=== PATIENT | female | born 1970 | race Caucasian/White ===

== ENCOUNTER 2017-02-22 13:39 | Outpatient (CLI) | payer MEDICARE, MEDICAID ==
[2017-02-22 15:36] LABS: Anion Gap 16 mmol/L (10-20); BUN (Urea Nitrogen) 9 mg/dL (7.0-18.7); Calc. Creatinine Clearance 0 mL/min (70-130); Carbon Dioxide 28 mmol/L (22-29); Chloride 101 mmol/L (98-107); Estimated GFR-MDRD 74
== END 2017-02-22 13:40 | disposition home or self-care (01) ==
LOC: LABBT 13:39
PROVIDERS: ATTEND Orthopaedic Surgery
DX: Z01.812 Encounter for preprocedural laboratory examination (principal); M75.101 Unspecified rotator cuff tear or rupture of right shoulder, not specified as traumatic
CPT/HCPCS: 80048

== ENCOUNTER 2017-03-04 05:50 | Day surgery (SDC) | payer MEDICARE, MEDICAID ==
[2017-02-22 14:01] VITALS: BMI 33.3
[2017-03-04] MEDS ORDERED: Vancomycin HCl 1.5 GM in Sodium Chloride 0.9% 250 ML 300 ML IVPB SCH (06:15)
[2017-03-04] MEDS ORDERED: Midazolam HCl 2 mg/2 ml Vial ONE (06:18)
[2017-03-04] MEDS ORDERED: Fentanyl 100 MCG/2 ML VIAL ONE (06:18)
[2017-03-04] MEDS ORDERED: Ropivacaine 0.2% HCl/PF 20 ML ONE (06:19)
[2017-03-04 06:22] LABS: #Eosinphils 0.3 thou/uL (0.0-0.7); #Lymphocytes 2.8 thou/uL (1.20-3.40); #Monocytes 0.9 thou/uL (0.11-0.59); #Neutrophils 7.3 thou/uL (1.40-6.50); %Basophils 0.2 % (0.0-1.0); %Eosinophils 2.3 % (0.0-10.0); %Lymphocytes 24.4 % (21.0-51.0); %Monocytes 8.2 % (0.0-10.0); Hematocrit 43.5 % (36.0-47.0); Red Blood Cell (RBC) Count 4.86 mill/uL (4.20-5.40); White Blood Cell (WBC) Count 11.3 thou/uL (4.8-10.8)
[2017-03-04] MEDS ORDERED: Levofloxacin 500 mg/D5W 100 ml Premix Bag ONE (06:38)
[2017-03-04] MEDS ORDERED: Promethazine HCl 25 MG/ML VIAL IM PRN (07:04)
[2017-03-04] MEDS ORDERED: Ketorolac Tromethamine 30 MG/ML VIAL IVP PRN (07:04)
[2017-03-04] MEDS ORDERED: traMADol HCl 50 MG TAB PO PRN ×2 (07:04)
[2017-03-04] MEDS ORDERED: Ondansetron HCl/PF 4 MG/2 ML Vial IVP PRN (07:04)
[2017-03-04] MEDS ORDERED: Zolpidem Tartrate 5 MG TAB PO PRN (07:04)
[2017-03-04] MEDS ORDERED: Ropivacaine 0.2% 550 ML 550 ML NERVE BLCK SCH (07:04)
--- NOTE | 2017-03-04 10:15 | OP ---
DATE OF PROCEDURE: 03/04/2017 PREOPERATIVE DIAGNOSIS: Right rotator cuff tear with proximal biceps tendon subluxation (supraspina tus, subscapularis articular side tears). POSTOPERATIVE DIAGNOSIS: Right rotator cuff tear with proximal biceps tendon subluxation (supraspin atus, subscapularis articular side tears). PROCEDURES PERFORMED: Mini open right shoulder acromioplasty, revision rotator cuff repair with pro ximal biceps tenodesis. SURGEON: John Bonner M.D. CORRECTION OFFICER: Anthony Acosta PA-C. ANESTHESIA: General via endotracheal tube augmented with indwelling interscalene block. COMPONENTS USED: Proximal biceps tenodesis and tenodesis screw, 7 mm bio-absorbable with FiberWire primary oversew and reinforcement of cuff tear. ESTIMATED BLOOD LOSS: Less than 20 mL DRAINS: None. SPECIMENS: None. COMPLICATIONS: None. COUNTS: Correct. INDICATIONS FOR SURGERY: Ms. Dawson is a 46-year-old white female who has had progressive right elda ulder pain for the last 4-5 months. She has had arthroscopic rotator cuff performed by Dr. Ha borrero 2-1/2 years ago. She has had progressive recrudescence of pain. An arthrogram was per formed preoperatively, which demonstrated articular-side subscapularis rotator cuff tear with an art icular supraspinatus incomplete tear and biceps tendon subluxation. She has elected to proceed with a revision rotator cuff open repair as definitive treatment of this problem. PROCEDURE IN DETAIL: After informed consent was obtained in the preoperative holding area, the leslye ent received preoperative antibiotics, was taken to the operative suite where general anesthesia was induced. Once adequate anesthesia was obtained, endotracheal tube was placed and secured. She was then positioned appropriately in a beach chair position. The right upper extremity and shoulder wa s prepped and draped in the usual sterile fashion. Prior to incision, timeout was called and all me mbers of surgical team agreed upon site, surgeon, and patient. After a timeout was completed, the i ncision was made on the lateral aspect of the right shoulder using sharp dissection being carried do wn through the subcutaneous layer with Bovie and blunt dissection encountering the deltoid. Bovie e lectrocautery was then used to expose the acromion edge and cautery was then used to open the deltoi d laterally using existing muscular raphe. Muscles were then divided and acromion was fully exposed and rongeur was then used to perform acromioplasty. We were then able to identify the weakness in the supraspinatus tendon insertion and subluxation of biceps was palpable. Small articular subscapu sybil tendon rupture was noted, but overall the majority of the tendon was still intact and was not shortened. We could not identify articular cartilage at this time, but it appeared as though there was a articular side delaminating tear. This was reinforced with FiberWire in both areas to include the subscapularis and the supraspinatus tendon. We then reflected the inferior aspect of the subsc apularis with Bovie electrocautery, identified the biceps tendon and tenodesis was then performed us ing Arthrex bioabsorbable interference screw. The interference screw was then used as an anchor poi nt for the inferior aspect of the subscapularis tendon. Having a good watertight fixation and rotat or cuff was mobile, we then bluntly dissected around using Miky elevators to remove all scar tis di in and around the shoulder capsule. Having good free motion, we then copiously irrigated the en tire wound with normal saline. The deltoid was reapproximated with 0 Ethibond stitches in a simple interrupted fashion. The muscular sheath was then reapproximated with #2 Vicryl. Her primary fasci a was reapproximated with interrupted 2-0 stitches and the subcuticular layer was closed with interr upted 2-0 inverted simple stitches and the skin was reapproximated with stainless steel osvaldo. St erile dressing was applied. The procedure was terminated without any complications. The patient wa s extubated in the operative suite and taken to recovery room in stable condition.
== END 2017-03-04 12:30 ==
LOC: SDC 05:50
PROVIDERS: ATTEND Orthopaedic Surgery
PROC: 0LQ10ZZ Repair Right Shoulder Tendon, Open Approach (ICD-10-PCS; principal; 2017-03-04)
PROC: 0LS30ZZ Reposition Right Upper Arm Tendon, Open Approach (ICD-10-PCS; 2017-03-04)
DX: M75.101 Unspecified rotator cuff tear or rupture of right shoulder, not specified as traumatic (principal); S46.119A Strain of muscle, fascia and tendon of long head of biceps, unspecified arm, initial encounter; I10 Essential (primary) hypertension; K21.9 Gastro-esophageal reflux disease without esophagitis; F17.210 Nicotine dependence, cigarettes, uncomplicated; J45.909 Unspecified asthma, uncomplicated; Z96.641 Presence of right artificial hip joint; Z90.89 Acquired absence of other organs; Z98.1 Arthrodesis status; Z98.890 Other specified postprocedural states; Z88.0 Allergy status to penicillin; Z88.2 Allergy status to sulfonamides; Z88.1 Allergy status to other antibiotic agents
CPT/HCPCS: 23415; 85025; 97139; 98960; A4306; G8984; G8985; G8986; C1713; J1956; J2250; J2795; J3010; J3370; J7050

== ENCOUNTER 2017-06-07 08:00 | Outpatient (CLI) | payer MEDICARE, MEDICAID | END 2017-06-07 08:01 | disposition home or self-care (01) | LOC: BICMRI 08:00 | PROVIDERS: ATTEND Orthopaedic Surgery | DX: M25.511 Pain in right shoulder (principal); M75.101 Unspecified rotator cuff tear or rupture of right shoulder, not specified as traumatic; M25.411 Effusion, right shoulder; Z98.890 Other specified postprocedural states ==

== ENCOUNTER 2017-06-21 12:05 | Outpatient (CLI) | payer MEDICARE, MEDICAID ==
[2017-06-21 15:32] LABS: Anion Gap 18 mmol/L (10-20); BUN (Urea Nitrogen) 8 mg/dL (7.0-18.7); Calc. Creatinine Clearance 0 mL/min (70-130); Calcium 10.4 mg/dL (7.8-10.44); Carbon Dioxide 24 mmol/L (22-29); Chloride 99 mmol/L (98-107); Estimated GFR-MDRD 83; Glucose 213 mg/dL (70-105); Potassium 4.3 mmol/L (3.5-5.1); Sodium 137 mmol/L (136-145)
--- NOTE | 2017-06-21 23:46 | EKG ---
Test Reason : Blood Pressure : / mmHG Vent. Rate : 078 BPM Atrial Rate : 078 BPM P-R Int : 146 ms QRS Dur : 092 ms QT Int : 372 ms P-R-T Axes : 043 087 057 degrees QTc Int : 424 ms Normal sinus rhythm Normal ECG When compared with ECG of 04-MAY-2016 06:49, No significant change was found Confirmed by Maria Isabel OSWALD ([id number]) on 06/21/2017 11:46:01 PM Referred By: GAURAV Confirmed By:Maria Isabel OSWALD
== END 2017-06-21 12:06 | disposition home or self-care (01) ==
LOC: LABBT 12:05
PROVIDERS: ATTEND Orthopaedic Surgery
DX: Z01.812 Encounter for preprocedural laboratory examination (principal); Z01.810 Encounter for preprocedural cardiovascular examination; M75.101 Unspecified rotator cuff tear or rupture of right shoulder, not specified as traumatic; Z88.0 Allergy status to penicillin; Z88.1 Allergy status to other antibiotic agents; Z88.2 Allergy status to sulfonamides
CPT/HCPCS: 80048; 93005; 93010

== ENCOUNTER 2017-06-23 05:39 | Day surgery (SDC) | payer MEDICARE, MEDICAID ==
[2017-06-21 12:17] VITALS: BMI 33.3
[2017-06-23] MEDS ORDERED: Levofloxacin 500 mg/D5W 100 ml Premix Bag ONE (06:14)
[2017-06-23] MEDS ORDERED: Vancomycin HCl 1.5 GM in Sodium Chloride 0.9% 250 ML 300 ML IVPB SCH (06:15)
[2017-06-23] MEDS ORDERED: Midazolam HCl 2 mg/2 ml Vial ONE (06:40)
[2017-06-23] MEDS ORDERED: Fentanyl 100 MCG/2 ML VIAL ONE (06:40)
[2017-06-23] MEDS ORDERED: Promethazine HCl 25 MG/ML VIAL IM PRN (07:50)
[2017-06-23] MEDS ORDERED: Ropivacaine 0.2% 550 ML 550 ML NERVE BLCK SCH (07:50)
[2017-06-23] MEDS ORDERED: Ketorolac Tromethamine 30 MG/ML VIAL IVP PRN (07:50)
[2017-06-23] MEDS ORDERED: Ondansetron HCl/PF 4 MG/2 ML Vial IVP PRN (07:50)
[2017-06-23] MEDS ORDERED: HYDROcodone/Acetaminophen 5/325 mg Tablet PO PRN ×2 (07:50)
[2017-06-23] MEDS ORDERED: Zolpidem Tartrate 5 MG TAB PO PRN (07:50)
[2017-06-23] MEDS ORDERED: traMADol HCl 50 MG TAB PO PRN ×2 (07:50)
[2017-06-23] MEDS ORDERED: Fentanyl 100 MCG/2 ML VIAL IV PRN (07:51)
--- NOTE | 2017-06-23 12:18 | OP ---
PREOPERATIVE DIAGNOSIS: Rotator cuff tear, recurrent. POSTOPERATIVE DIAGNOSIS: Rotator cuff tear, recurrent. PROCEDURE: Open rotator cuff repair. SPECIMEN: Culture of the right shoulder sent. SURGEON: John Bonner M.D. ASSISSTANT: SELENA Acosta IMPLANTS: None. NARRATIVE REPORT: Appropriate consent was obtained, the patient was taken to the operating room wher e general anesthesia was induced. The patient was placed in a beach chair position. Right arm was p repped and draped in the usual sterile fashion. She received vancomycin preoperatively. The old inc ision was opened. Dissection carried down to these sutures through the acromion. The deltoid was ta colin down off the anterior acromion just a very small hole in the rotator cuff adjacent for the suture s identified. I used an arthrogram technique by injecting sterile saline into the joint to find this . We did find somewhat slightly cloudy fluid in the subacromial space, which was joint fluid consist ency this was sent for culture. Copious irrigation was performed. Shoulder was manipulated, rotator cuff was repaired with #1 Ethibond. Deltoid was repaired with #1 Ethibond, subcutaneous tissue clos ed with 2-0 Vicryl, the skin was closed with osvaldo. Sterile dressings applied.
== END 2017-06-23 11:30 | disposition home or self-care (01) ==
LOC: SDC 05:39
PROVIDERS: ATTEND Orthopaedic Surgery
PROC: 0LQ10ZZ Repair Right Shoulder Tendon, Open Approach (ICD-10-PCS; principal; 2017-06-23)
DX: M75.101 Unspecified rotator cuff tear or rupture of right shoulder, not specified as traumatic (principal); E11.9 Type 2 diabetes mellitus without complications; I10 Essential (primary) hypertension; M81.0 Age-related osteoporosis without current pathological fracture; J45.909 Unspecified asthma, uncomplicated; K21.9 Gastro-esophageal reflux disease without esophagitis; M19.90 Unspecified osteoarthritis, unspecified site; F32.9 Major depressive disorder, single episode, unspecified; G47.30 Sleep apnea, unspecified; F17.210 Nicotine dependence, cigarettes, uncomplicated; Z79.84 Long term (current) use of oral hypoglycemic drugs; Z79.890 Hormone replacement therapy; Z79.899 Other long term (current) drug therapy; Z88.1 Allergy status to other antibiotic agents; Z88.0 Allergy status to penicillin; Z88.2 Allergy status to sulfonamides; Z98.1 Arthrodesis status; Z96.641 Presence of right artificial hip joint; Z90.710 Acquired absence of both cervix and uterus; Z90.49 Acquired absence of other specified parts of digestive tract; Z98.891 History of uterine scar from previous surgery; Z98.890 Other specified postprocedural states; Z86.14 Personal history of Methicillin resistant Staphylococcus aureus infection
CPT/HCPCS: 23410; 87070; 87075; 87205; 97139; A4306; G8984; G8985; G8986; J1956; J2250; J2795; J3010; J3370; J7050

== ENCOUNTER 2017-11-02 15:30 | Inpatient (IN) | payer MEDICARE, MEDICAID ==
[2017-11-02 16:07] VITALS: BMI 33.3
[2017-11-11] MEDS ORDERED: Ropivacaine 0.2% HCl/PF 20 ML ONE (08:30)
[2017-11-11] MEDS ORDERED: Midazolam HCl 2 mg/2 ml Vial ONE (08:30)
[2017-11-11] MEDS ORDERED: Lidocaine 1% (PF) 30 ML VIAL ONE (08:30)
[2017-11-11] MEDS ORDERED: Fentanyl 100 MCG/2 ML VIAL ONE ×2 (08:30→10:03)
[2017-11-11] MEDS ORDERED: Sodium Chloride 0.9% 100 ML ONE (08:33)
[2017-11-11] MEDS ORDERED: CEFAZOLIN/Water 2 GM/20 ML SYRINGE ONE (08:33)
[2017-11-11] MEDS ORDERED: Vancomycin HCl 1.5 GM in Sodium Chloride 0.9% 250 ML 300 ML IVPB SCH (08:45)
[2017-11-11] MEDS ORDERED: Levofloxacin 500 mg/D5W 100 ml Premix Bag ONE (09:22)
[2017-11-11] MEDS ORDERED: Ropivacaine 0.2% 550 ML 550 ML NERVE BLCK SCH (09:35)
[2017-11-11] MEDS ORDERED: Ondansetron HCl/PF 4 MG/2 ML Vial IVP PRN (09:35)
[2017-11-11] MEDS ORDERED: Zolpidem Tartrate 5 MG TAB PO PRN (09:35)
[2017-11-11] MEDS ORDERED: Promethazine HCl 25 MG/ML VIAL IM PRN (09:35)
[2017-11-11] MEDS ORDERED: HYDROcodone/Acetaminophen 10/325 mg Tablet PO PRN ×2 (09:35)
[2017-11-11] MEDS ORDERED: traMADol HCl 50 MG TAB PO PRN ×2 (09:35)
[2017-11-11] MEDS ORDERED: Fentanyl 100 MCG/2 ML VIAL IV PRN (09:36)
--- NOTE | 2017-11-11 13:25 | RAD ---
RIGHT SHOULDER 2 VIEWS: HISTORY: Postop right shoulder prosthesis placement. FINDINGS: Postop changes are noted with skin osvaldo. Right shoulder prosthesis has been placed. Components a ppear in adequate position and alignment. POS: [facility]
[2017-11-11] MEDS: Dextrose 5 %-0.45 % NaCl 1,000 ML IV SCH (15:30)
[2017-11-11] MEDS ORDERED: Ropivacaine 0.2% HCl/PF (40 MG/20 ML VIAL) ONE (15:37)
[2017-11-11] MEDS ORDERED: Ropivacaine 0.5% HCl/PF (150 MG/30 ML VIAL) ONE (15:37)
[2017-11-11] MEDS ORDERED: PROPOFOL 200 MG/20 ML VIAL ONE (15:41)
[2017-11-11] MEDS ORDERED: PHENYLEPHRINE-NS 100 MCG/ML 10 ML SYRINGE ONE (15:41)
[2017-11-11] MEDS ORDERED: Lidocaine 1% PF 5 ML VIAL ONE (15:41)
[2017-11-11] MEDS ORDERED: Glycopyrrolate 0.2 MG/ML 5 ML SYRINGE ONE (15:41)
[2017-11-11] MEDS ORDERED: Ondansetron HCl/PF 4 MG/2 ML Vial ONE (15:41)
[2017-11-11] MEDS ORDERED: ePHEDrine/0.9% NaCl/PF SYRINGE 50 mg/10 ml ONE (15:41)
[2017-11-11] MEDS ORDERED: Dexamethasone 20 MG/5 ML VIAL ONE (15:41)
[2017-11-11] MEDS: Ketorolac Tromethamine 30 MG/ML VIAL IVP SCH ×3 (16:32→23:41)
--- NOTE | 2017-11-11 17:14 | OP ---
PREOPERATIVE DIAGNOSIS: Rotator cuff arthropathy, right shoulder, and retained hardware. POSTOPERATIVE DIAGNOSIS: Rotator cuff arthropathy, right shoulder, and retained hardware. SURGEON: John Bonner M.D. MEDICAL RECORDS TECH: Osei Acosta PA-C. BLOOD LOSS: 300. SPECIMEN: None. DRAINS: None. COMPLICATIONS: None. DESCRIPTION OF PROCEDURE: The patient was taken to the operating room where general anesthesia was i nduced. She was placed in beach chair position. Deltopectoral approach was made. The area was quit e scarred from previous multiple surgeries. Subscapularis was taken down. The shoulder was dislocat ed then identified transfixing tenodesis screw in the proximal humerus. A tenodesis screw was remove d by chipping away bone from the aperture of the drill hole and then using the appropriate screwdrive r to remove the screw. I opened up the proximal humerus with opening all, broached to size 2, which was very stable. I reamed the proximal humerus. The glenoid was then exposed removing remaining lab ral tissue and slightly inferior to center hole, it was drilled in the glenoid and reamed with a 1 st ep reamer. I deployed a 29 mm baseplate. Screws were inserted in the usual technique with excellent bone purchase. A standard glenosphere was deployed and screw was tightened without difficulty. Att ention was turned back to offset tray plus 0 in height. The poly was 36 mm x 6 mm. Trial redu ction was performed. Excellent stability. Trials were removed, irrigation performed. I placed dril l holes in the humerus. The implant was impacted into place with the suture around the implant then used the Dacron suture to repair the subscapularis, the proximal humerus. I then tried to mobilize a ny remaining cuff tissue and so this to the subscapularis just to try and give some space closur e. Irrigation performed again. Deltopectoral was closed with a #1 Vicryl, subcutaneous closed with 2-0 Vicryl and the skin was closed with osvaldo. Sterile dressings applied.
[2017-11-11] MEDS ORDERED: Vancomycin HCl 1 GM in Premix Bag 1 BAG IVPB SCH (20:00)
[2017-11-11] MEDS: Calcium Carbonate + Vit D 1 TAB PO SCH (20:35)
[2017-11-11] MEDS: Gabapentin 300 MG CAP PO SCH (20:35)
[2017-11-11] MEDS: Propranolol HCl 20 MG TAB PO SCH (20:44)
[2017-11-12] MEDS: Ketorolac Tromethamine 30 MG/ML VIAL IVP SCH (05:20)
[2017-11-12] MEDS: Dextrose 5 %-0.45 % NaCl 1,000 ML IV SCH (05:24)
[2017-11-12 07:12] VITALS: BP 130/72; TEMP 98.5
[2017-11-12] MEDS ORDERED: metFORMIN XR 500 MG TAB PO SCH (08:00)
[2017-11-12] MEDS ORDERED: Multivit, Therapeutic 1 TAB PO SCH (09:00)
[2017-11-12] MEDS ORDERED: Hydrochlorothiazide 25 MG TAB PO SCH (09:00)
[2017-11-12] MEDS ORDERED: PRASTERONE PO SCH (09:00)
[2017-11-12] MEDS ORDERED: Fenofibrate Nanocrystallized 145 MG TAB PO SCH (09:00)
[2017-11-12] MEDS ORDERED: PARoxetine 20 MG TAB PO SCH (09:00)
[2017-11-12] MEDS ORDERED: Enoxaparin Sodium 30 MG/0.3 ML SYRINGE SC SCH (09:00)
[2017-11-12] MEDS ORDERED: FLAXSEED OIL 1200 MG PO SCH (09:00)
[2017-11-12] MEDS ORDERED: hydrOXYzine 25 MG TAB PO SCH (09:00)
[2017-11-12] MEDS ORDERED: Losartan 25 MG TAB PO SCH (09:00)
[2017-11-12] MEDS ORDERED: Cyanocobalamin (Vitamin B-12) 1,000 MCG TAB PO SCH (09:00)
[2017-11-12] MEDS: Calcium Carbonate + Vit D 1 TAB PO SCH (09:28)
[2017-11-12] MEDS: Gabapentin 300 MG CAP PO SCH (09:30)
[2017-11-12] MEDS: Propranolol HCl 20 MG TAB PO SCH (09:33)
== END 2017-11-12 11:05 | disposition home or self-care (01) | DRG 483 ==
LOC: SURG A 11-11 07:48
PROVIDERS: ADMIT Orthopaedic Surgery; ATTEND Orthopaedic Surgery
PROC: 0RRJ00Z Replacement of Right Shoulder Joint with Reverse Ball and Socket Synthetic Substitute, Open Approach (ICD-10-PCS; principal; 2017-11-11)
PROC: 0PPC04Z Removal of Internal Fixation Device from Right Humeral Head, Open Approach (ICD-10-PCS; 2017-11-11)
PROC: 3E0T3BZ Introduction of Anesthetic Agent into Peripheral Nerves and Plexi, Percutaneous Approach (ICD-10-PCS; 2017-11-11)
DX: M19.011 Primary osteoarthritis, right shoulder (principal); E11.9 Type 2 diabetes mellitus without complications; I10 Essential (primary) hypertension; M81.0 Age-related osteoporosis without current pathological fracture; K21.9 Gastro-esophageal reflux disease without esophagitis; J45.909 Unspecified asthma, uncomplicated; Z96.649 Presence of unspecified artificial hip joint; F32.9 Major depressive disorder, single episode, unspecified; Z86.14 Personal history of Methicillin resistant Staphylococcus aureus infection; Z86.19 Personal history of other infectious and parasitic diseases; Z86.69 Personal history of other diseases of the nervous system and sense organs; Z90.710 Acquired absence of both cervix and uterus; Z90.49 Acquired absence of other specified parts of digestive tract; Z98.1 Arthrodesis status; Z79.899 Other long term (current) drug therapy; Z79.84 Long term (current) use of oral hypoglycemic drugs
CPT/HCPCS: 36416; A4306; G8987-GO-CI; G8988-GO-CI; G8989-GO-CI; J1100; J1650; J1885; J1956; J2001; J2250; J2405; J2704; J2795; J3010; J3370; J7050

== ENCOUNTER 2017-11-02 15:42 | Outpatient (CLI) | payer MEDICARE, MEDICAID ==
[2017-11-02 16:04] LABS: #Basophils 0.1 thou/uL (0.0-0.2); #Eosinphils 0.4 thou/uL (0.0-0.7); #Neutrophils 8.7 thou/uL (1.40-6.50); %Basophils 0.5 % (0.0-1.0); %Eosinophils 2.9 % (0.0-10.0); %Lymphocytes 22.6 % (21.0-51.0); %Monocytes 7.8 % (0.0-10.0); %Neutrophils 66.3 % (42.0-75.0); Hemoglobin 14.7 g/dL (12.0-16.0); Mean Corpuscular HGB CONC 33.1 g/dL (32.0-36.0); Mean Corpuscular Hemoglobin 29.1 pg (27.0-31.0); Mean Corpuscular Volume 87.7 fl (81.0-99.0); Mean Platelet Volume 8.1 fL (7.4-10.4); Platelet Count 348 thou/uL (130-400); RBC Distribution Width 14.1 % (11.5-14.5); Red Blood Cell (RBC) Count 5.05 mill/uL (4.20-5.40); White Blood Cell (WBC) Count 13.1 thou/uL (4.8-10.8)
[2017-11-02 16:21] LABS: Anion Gap 16 mmol/L (10-20); BUN (Urea Nitrogen) 15 mg/dL (7.0-18.7); Calc. Creatinine Clearance 0 mL/min (70-130); Calcium 10.3 mg/dL (7.8-10.44); Carbon Dioxide 23 mmol/L (22-29); Chloride 103 mmol/L (98-107); Estimated GFR-MDRD 81; Glucose 188 mg/dL (70-105); Potassium 4.7 mmol/L (3.5-5.1); Sodium 137 mmol/L (136-145)
== END 2017-11-02 15:43 | disposition home or self-care (01) ==
LOC: LABBT 15:42
PROVIDERS: ATTEND Orthopaedic Surgery
DX: Z01.812 Encounter for preprocedural laboratory examination (principal); M12.9 Arthropathy, unspecified
CPT/HCPCS: 80048; 85025; 87081

== ENCOUNTER 2018-07-27 05:30 | Day surgery (SDC) | payer MEDICARE, MEDICAID ==
[2018-07-26 10:59] VITALS: BMI 33.3
[2018-07-27] MEDS ORDERED: Vancomycin HCl 1.5 GM in Sodium Chloride 0.9% 250 ML 300 ML IVPB SCH (06:00)
[2018-07-27] MEDS ORDERED: Lidocaine 1% w/Epinephrine 1:100K 20 ML VIAL ONE (06:32)
[2018-07-27] MEDS ORDERED: Midazolam HCl 2 mg/2 ml Vial ONE (06:54)
[2018-07-27] MEDS ORDERED: Fentanyl 100 MCG/2 ML VIAL ONE (07:01)
--- NOTE | 2018-07-27 11:59 | OP ---
DATE OF PROCEDURE: 07/27/2018 PREOPERATIVE DIAGNOSES: 1. Trigger thumb, left. 2. Carpal tunnel syndrome, left. POSTOPERATIVE DIAGNOSES: 1. Trigger thumb, left. 2. Carpal tunnel syndrome, left. TYPE OF PROCEDURE: Left carpal tunnel release. ANESTHESIA: TIVA, local. ESTIMATED BLOOD LOSS: Minimal. SPECIMENS: None. DRAINS: None. COMPLICATIONS: None. DESCRIPTION OF PROCEDURE: The patient was taken to the operating room, where general anesthesia was induced. The left arm was prepped and draped in sterile fashion. I made a transverse incision at the flexion crease on the thumb. Dissection was carried down to the tendon sheath. I opened the tendon sheath proximally and distally under direct visualization and Loupe magnification to make sure there was no digital nerve entrapment. Tendon would move freely. Then, irrigation performed and skin was closed. After appropriate consent was obtained, the patient was taken to the operating room where TIVA anesthesia was induced. The arm was prepped and draped in the sterile fashion. The arm was exsanguinated. The tourniquet was inflated to 250 mmHg. A longitudinal incision was made. Hemostasis obtained. Dissection was carried down to the transverse carpal ligament. The transverse carpal ligament was incised. Hemostat was placed deep in the transverse carpal ligament. The knife was used to cut down unto the ligament and hemostat. Care was taken to protect the contents of the carpal canal. Attention was then turned proximally. Metzenbaum scissors were used to release the carpal ligament into the forearm fascia. The carpal tunnel was palpated. There were no masses. The tourniquet was released. Hemostasis was obtained. Copious irrigation performed. The skin was closed with 4-0 nylon. A sterile dressing was applied and the patient was placed in a splint. There were no complications. Job ID: [id number]
[2018-07-27] MEDS ORDERED: PROPOFOL 200 MG/20 ML VIAL ONE (13:58)
[2018-07-27] MEDS ORDERED: Lidocaine 1% PF 5 ML VIAL ONE (13:58)
== END 2018-07-27 09:17 | disposition home or self-care (01) ==
LOC: SDC 05:30
PROVIDERS: ATTEND Orthopaedic Surgery
PROC: 01N50ZZ Release Median Nerve, Open Approach (ICD-10-PCS; principal; 2018-07-27)
DX: G56.02 Carpal tunnel syndrome, left upper limb (principal); M65.312 Trigger thumb, left thumb; E11.9 Type 2 diabetes mellitus without complications; I10 Essential (primary) hypertension; M81.0 Age-related osteoporosis without current pathological fracture; K21.9 Gastro-esophageal reflux disease without esophagitis; J45.909 Unspecified asthma, uncomplicated; F32.9 Major depressive disorder, single episode, unspecified; Z98.890 Other specified postprocedural states; Z79.84 Long term (current) use of oral hypoglycemic drugs; Z79.899 Other long term (current) drug therapy; Z88.0 Allergy status to penicillin; Z88.2 Allergy status to sulfonamides; Z88.8 Allergy status to other drugs, medicaments and biological substances
CPT/HCPCS: J2001; J2250; J2704; J3010; J3370; J7050

== ENCOUNTER 2018-09-27 12:44 | Outpatient (CLI) | payer MEDICARE, MEDICAID ==
--- NOTE | 2018-09-27 13:25 | CT ---
CT LUMBAR SPINE: 09/27/2018 HISTORY: Fall. Pain. Prior back surgery. COMPARISON: None. TECHNIQUE: Axial CT imaging at 3 mm intervals through the lumbar spine without contrast with coronal and sagitta l reformatted imaging. FINDINGS: Evaluation for central canal and/or neural foraminal stenosis is limited on routine CT examination. Moderate bilateral sacroiliac joint degenerative change is present. There is atherosclerotic calcification of the abdominal aorta and its branches. There is no significant anterolisthesis or retrolisthesis present within the lumbar spine. There is an intervertebral disk device at L4-L5. Bilateral L4, L5, and S1 pedicle screws are present , with vertically oriented interlocking rods. No evidence for hardware failure is appreciated on this examination. T12-L1: Mild bilateral facet hypertrophy. Mild disk space narrowing. No osseous cause of significa nt central canal or neural foraminal stenosis. L1-L2: Mild bilateral facet hypertrophy with hypertrophy of the ligamentum flavum. No osseous cause of significant central canal or neural foraminal stenosis. L2-L3: There is disk space narrowing and bilateral facet hypertrophy with mild bilateral ligamentum flavum hypertrophy. Mild central canal stenosis and mild bilateral neural foraminal stenosis suspect ed. L3-L4: Prominent bilateral facet hypertrophy. Moderate bilateral neural foraminal stenosis suspecte d, right greater than left. No osseous cause of significant central canal stenosis. L4-L5: Artifact from hardware limits detailed assessment. Bilateral facet hypertrophy with mild rig ht and moderate left neural foraminal stenosis suspected. No osseous cause of significant central ca nal stenosis. L5-S1: Bilateral facet hypertrophy with probable mild right and moderate left neural foraminal steno sis. No osseous cause of significant central canal stenosis. Right hip arthroplasty present. No acute fracture or dislocation. No suspicious lytic or blastic joann ne lesion. IMPRESSION: Multilevel postoperative and degenerative change within the lumbar spine, as described above. No acu te fracture or evidence of dislocation seen. POS: OFF
== END 2018-09-27 12:45 | disposition home or self-care (01) ==
LOC: TBSIIMAG 12:44
PROVIDERS: ATTEND Neurological Surgery
DX: M54.5 Low back pain (principal); M47.815 Spondylosis without myelopathy or radiculopathy, thoracolumbar region; M47.816 Spondylosis without myelopathy or radiculopathy, lumbar region; M47.817 Spondylosis without myelopathy or radiculopathy, lumbosacral region; Z98.890 Other specified postprocedural states
CPT/HCPCS: 72131

== ENCOUNTER 2019-11-06 18:46 | Observation (INO) | payer MEDICARE, MEDICAID ==
[2019-11-06 20:01] LABS: Anion Gap 13 mmol/L (10-20); BUN (Urea Nitrogen) 32 mg/dL (9.8-20.1); Calc. Creatinine Clearance 0 mL/min (70-130); Calcium 8.8 mg/dL (7.8-10.44); Carbon Dioxide 23 mmol/L (22-29); Chloride 102 mmol/L (98-107); Estimated GFR-MDRD 33; Glucose 83 mg/dL (70-105); Sodium 134 mmol/L (136-145)
[2019-11-06] MEDS ORDERED: Ondansetron ODT 4 MG TAB SL PRN (22:03)
[2019-11-06] MEDS ORDERED: Acetaminophen 325 MG TAB PO PRN (22:03)
[2019-11-06] MEDS ORDERED: Ondansetron PF 4 MG/2 ML Vial IVP PRN (22:03)
[2019-11-06] MEDS ORDERED: Dextrose 5% in Water 1,000 ML IV PRN (22:09)
[2019-11-06] MEDS ORDERED: Calcium Carbonate 500 MG ChewTAB PO PRN (22:09)
[2019-11-06] MEDS ORDERED: Dextrose 50% Abboject 50 ML SYRINGE SLOW IVP PRN (22:09)
[2019-11-06] MEDS ORDERED: HumaLOG 300 UNITS/3 ML VIAL SC PRN ×2 (22:09)
[2019-11-06 22:47] VITALS: BMI 33.5
[2019-11-06] MEDS ORDERED: Nicotine 21 MG PATCH TD SCH (23:00)
[2019-11-07] MEDS ORDERED: HYDROcodone/Acetaminophen 10/325 mg Tablet PO PRN ×2 (02:30→02:36)
[2019-11-07] MEDS: Lactated Ringer's 1,000 ML IV SCH ×2 (04:25→14:57)
[2019-11-07 05:05] LABS: ALT (SGPT) 13 U/L (8-55); AST (SGOT) 13 U/L (5-34); Albumin 3.9 g/dL (3.5-5.0); Alkaline Phosphatase 101 U/L (40-110); Anion Gap 9 mmol/L (10-20); BUN (Urea Nitrogen) 28 mg/dL (9.8-20.1); Bilirubin, Total 0.2 mg/dL (0.2-1.2); Calc. Creatinine Clearance 98 mL/min (70-130); Calcium 9.3 mg/dL (7.8-10.44); Carbon Dioxide 30 mmol/L (22-29); Chloride 102 mmol/L (98-107); Estimated GFR-MDRD 60; Globulin 2.8 g/dL (2.4-3.5); Glucose 123 mg/dL (70-105); Potassium 3.7 mmol/L (3.5-5.1); Protein, Total 6.7 g/dL (6.0-8.3); Sodium 137 mmol/L (136-145)
[2019-11-07 05:08] LABS: Band 2 % (5-11); Eosinophils 4 % (0-10); Hemoglobin 13.1 g/dL (12.0-16.0); Lymphocytes 35 % (21-51); MDiff Complete? YES; Mean Corpuscular HGB CONC 32.5 g/dL (32.0-36.0); Mean Corpuscular Hemoglobin 28.2 pg (27.0-31.0); Mean Corpuscular Volume 86.8 fL (78.0-98.0); Mean Platelet Volume 8.7 fL (7.4-10.4); Monocytes 3 % (0-10); Neutrophil 55 % (42-75); Platelet Count 255 thou/uL (130-400); RBC Distribution Width 13.3 % (11.5-14.5); Reactive Lymphocytes 1 % (0-10); Red Blood Cell (RBC) Count 4.65 mill/uL (4.20-5.40); White Blood Cell (WBC) Count 9.1 thou/uL (4.8-10.8)
--- NOTE | 2019-11-07 06:24 | PDOC.FPRHP ---
- History of Present Illness Chief Complaint: Lightheaded History of Present Illness: Pt is a 49 yo CF with pmh of DMII, HTN, and CHF who presents for lightheadedness , GERD like stomach pain, and a severe headache. She says this all started 2 days ago. 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 She says she drank 4-5 bottles of water 2 days ago and 6-8 bottles of water yesterday. Her headache was was generalized and has since improved. She had 1 minute of chest tightness that was centrally located today without radiation and relieved with rest. ED Course: At [place], WBC count was elevated to 15 and Cre was 2.6. Trop was 0.025. She received 3L there prior to transfer. - Allergies/Adverse Reactions Allergies Allergy/AdvReac Type Severity Reaction Status Date / Time clindamycin Allergy Intermediate Hives Verified 08/18/19 13:39 Penicillins Allergy Intermediate Hives Verified 08/18/19 13:39 Sulfa (Sulfonamide Allergy Intermediate Hives Verified 08/18/19 13:39 Antibiotics) ciprofloxacin [From Cipro] Allergy Verified 08/18/19 13:39 - Home Medications Medication Instructions Recorded Confirmed Type Gabapentin 300 mg PO BID 08/29/13 11/06/19 History Hydrochlorothiazide 25 mg PO DAILY 08/29/13 11/06/19 History Losartan Potassium [Cozaar] 100 mg PO DAILY 08/29/13 11/06/19 History PARoxetine HCl 1 tab PO DAILY 08/29/13 11/06/19 History Pantoprazole [Protonix] 1 tab PO DAILY 08/29/13 11/06/19 History Multivit, Therapeutic [Theragran] 1 tab PO DAILY 10/09/14 11/06/19 History Calcium Citrate/Vitamin D3 2 each PO BID 11/21/14 11/06/19 History [Calcium Citrate - Vit D Tablet] Fenofibrate [Tricor] 160 mg PO DAILY 11/20/15 11/06/19 History Cholecalciferol (Vitamin D3) 5,000 units PO DAILY 05/03/16 11/06/19 History [Vitamin D3] metFORMIN XR [Glucophage XR] 500 mg PO QAM-WM 05/03/16 11/06/19 History Cholecalciferol (Vitamin D3) 50,000 unit PO Q30D 02/22/17 11/06/19 History [Vitamin D] Flaxseed Oil [Flax Seed Oil] 1,200 mg PO DAILY 02/22/17 11/06/19 History Cyanocobalamin (Vitamin B-12) 2,500 mcg PO DAILY 06/21/17 11/06/19 History [Vitamin B12] Prasterone (DHEA) [DHEA] 100 mg PO DAILY 06/21/17 11/06/19 History Propranolol HCl 20 mg PO BID 06/21/17 11/06/19 History hydrOXYzine HCl [Hydroxyzine HCl] 25 mg PO DAILY 06/21/17 11/06/19 History HYDROcodone Bit/APAP 10/325 [[place] 1 - 2 tab PO Q6HR PRN 11/12/17 11/06/19 History 10/325] - History PMHx: GERD, Migraine, Asthma, HTN, DMII, Depression PSHx: R total hip, R shoulder, Gallbladder, Spinal surgeries x6 FHx: Mom: DM, HTN, CHF Social: Denies alcohol or recreatioinal drug use. She has smoked tobacco since 14 she is down to 3-4 cigs per day. - Review of Systems General: denies: fever/chills Eyes: denies: vision changes ENT: denies: nasal congestion Respiratory: reports: shortness of breath. denies: congestion Cardiovascular: reports: chest pain. denies: edema Gastrointestinal: denies: nausea, vomiting, diarrhea, constipation, abdominal pain Genitourinary: denies: dysuria Skin: denies: rashes, lesions Musculoskeletal: denies: pain, tenderness Neurological: denies: numbness, weakness Psychological: reports: depression - Vital signs BP: 123/64 HR: 56 RR: 18 Tmax: 98.3 Pox: 95% on RA Wt: 88.9 kg - Physical Exam Constitutional: NAD, awake, alert and oriented HEENT: normocephalic and atraumatic, PERRLA, EOMI, conjunctiva clear, no scleral icterus, normal nasal mucosa, MMM, oropharynx clear Neck: supple, no LAD Heart: RRR, normal S1/S2, no murmurs/rubs/gallops, pulses present, no edema Lungs: CTAB, no respiratory distress, good air movement, no rales/rhonchi, no wheezing Abdomen: soft, non-tender, bowel sounds present Musculoskeletal: normal structure, normal tone Neurological: no focal deficit, CN II-XII intact Skin: no rash/lesions, good turgor Heme/Lymphatic: no unusual bruising or bleeding, no purpura, no petechia Psychiatric: normal mood and affect FMR H&P: Results - Labs Result Diagrams: 11/07/19 04:20 11/07/19 04:20 Lab results: WBC 9.1 thou/uL (4.8-10.8) 11/07/19 04:20 Hgb 13.1 g/dL (12.0-16.0) 11/07/19 04:20 Hct 40.4 % (36.0-47.0) 11/07/19 04:20 MCV 86.8 fL (78.0-98.0) 11/07/19 04:20 Plt Count 255 thou/uL (130-400) 11/07/19 04:20 Band Neuts % (Manual) 2 % (5-11) L 11/07/19 04:20 Sodium 137 mmol/L (136-145) 11/07/19 04:20 Potassium 3.7 mmol/L (3.5-5.1) 11/07/19 04:20 Chloride 102 mmol/L (98-107) 11/07/19 04:20 Carbon Dioxide 30 mmol/L (22-29) H 11/07/19 04:20 BUN 28 mg/dL (9.8-20.1) H 11/07/19 04:20 Creatinine 0.98 mg/dL (0.6-1.1) 11/07/19 04:20 Glucose 123 mg/dL (70-105) H 11/07/19 04:20 Calcium 9.3 mg/dL (7.8-10.44) 11/07/19 04:20 Total Bilirubin 0.2 mg/dL (0.2-1.2) 11/07/19 04:20 AST 13 U/L (5-34) 11/07/19 04:20 ALT 13 U/L (8-55) 11/07/19 04:20 Alkaline Phosphatase 101 U/L (40-110) 11/07/19 04:20 Serum Total Protein 6.7 g/dL (6.0-8.3) 11/07/19 04:20 Albumin 3.9 g/dL (3.5-5.0) 11/07/19 04:20 FMR H&P: A/P - Plan Pt is a 49 yo CF with pmh of DMII, HTN, and CHF who presents for lightheadedness , GERD like stomach pain, and a severe headache. 1. CYNTHIA Cre: 2.6, baseline 0.6 * S/p 3L at [place] * LR @ 125 * Will monitor with BMP * CBC showed elevated WBC likely 2/2 dehydration will monitor 2. Elevated Trop Trop: 0.025 * Will trend trops * NPO for stress * CP was atypical: tightness, relieved with rest, 1 min, no radiation * Heart Score: 3 * Can consider stress but less like cardiac 3. DMII Hold Metformin * ACHS Accuchecks, Mild SSI 4. HTN BP: 123/64 * BP meds held for possible stress 5. GERD Continue Protonix 6. Asthma Currently not on any medication * No signs of wheezing on exam Code Status: Full Diet: NPO IVF: LR @ 125 cc DVT PPx: SCDs GI PPx: Protonix, home med PCP: Miguel Dispo: Admit to tele obs for treatment of cynthia and trend trops. LOS < 48H. FMR H&P: Upper Level - Plan Date/Time: 11/07/19621 I, Braxton Tolbert, have evaluated this patient and agree with findings/plan as outlined by international student advisor resident. Pertinent changes/additions are listed here. Addendum - Attending - Attending Attestation Date/Time: 11/07/19 0889 I personally evaluated the patient and discussed the management with the team. I agree with the History, Examination, Assessment and Plan documented above with any addition or exceptions noted below. 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 Hydrate and consider stress test.
[2019-11-07] MEDS ORDERED: Prevnar 13-Val Conj/PF 0.5 ML SYRINGE IM ONE (09:00)
[2019-11-07] MEDS ORDERED: Multivit, Therapeutic 1 TAB PO SCH (09:00)
[2019-11-07] MEDS ORDERED: hydrOXYzine 25 MG TAB PO SCH (09:00)
[2019-11-07] MEDS ORDERED: Cyanocobalamin (Vitamin B-12) 1,000 MCG TAB PO SCH (09:00)
[2019-11-07] MEDS ORDERED: PARoxetine 20 MG TAB PO SCH (09:00)
[2019-11-07] MEDS ORDERED: Fenofibrate Nanocrystallized 145 MG TAB PO SCH (09:00)
[2019-11-07] MEDS ORDERED: Gabapentin 300 MG CAP PO SCH (09:00)
[2019-11-07] MEDS ORDERED: Pantoprazole 40 MG GRANULES PACKET PO SCH (09:00)
[2019-11-07] MEDS ORDERED: Regadenoson 0.4 MG/5 ML SYRINGE ONE (09:05)
--- NOTE | 2019-11-07 12:27 | PDOC.EVN ---
Addendum - Attending - Attending Attestation Date/Time: 11/07/19 0542 I personally evaluated the patient and discussed the management with Dr. Williamson. I agree with the History, Examination, Assessment and Plan documented in his H& P with any addition or exceptions noted below. Patient renal function back to normal with IVF hydration. She feels improved. Stress test today due to chest discomfort. If negative, should be stable for discharge home later today.
--- NOTE | 2019-11-07 12:57 | PDOC.FM ---
- Subjective Subjective: Pt is 49 yo female with PMH significant for HTN, HLD, and DM who presented with chest pain after exertion. She became sob of breath, nauseated. Her pain alleviated with rest. She has not had a cardiac workup. - Objective Vital Signs & Weight: Vital Signs (12 hours) Temp Pulse Resp BP Pulse Ox 11/07/19 11:08 97.9 F 62 18 100/52 L 96 11/07/19 07:26 97.9 F 61 18 105/53 L 96 11/07/19 03:20 98.4 F 62 18 99/49 L 95 Weight Weight 91.535 kg I&O: 11/06/19 11/07/19 11/08/19 06:59 06:59 06:59 Intake Total 3610 Balance 3610 Result Diagrams: 11/07/19 04:20 11/07/19 04:20 EKG Reviewed by me: Yes (NSR) Phys Exam - Physical Examination Constitutional: NAD HEENT: PERRLA, moist MMs Neck: no JVD, full ROM Respiratory: no wheezing, no rales, clear to auscultation bilateral Cardiovascular: RRR, no significant murmur Gastrointestinal: soft, non-tender, positive bowel sounds Musculoskeletal: no edema, pulses present Neurological: non-focal, normal sensation Psychiatric: normal affect, A&O x 3 Dx/Plan (1) Diabetes mellitus type II, controlled Code(s): E11.9 - TYPE 2 DIABETES MELLITUS WITHOUT COMPLICATIONS Status: Acute Qualifiers: Diabetes mellitus buttermaker helper insulin use: without buttermaker helper use (2) GERD (gastroesophageal reflux disease) Code(s): K21.9 - GASTRO-ESOPHAGEAL REFLUX DISEASE WITHOUT ESOPHAGITIS Status: Acute (3) High triglycerides Code(s): E78.1 - PURE HYPERGLYCERIDEMIA Status: Acute (4) Hypertension Code(s): I10 - ESSENTIAL (PRIMARY) HYPERTENSION Status: Acute Qualifiers: Hypertension type: essential hypertension Qualified Code(s): I10 - Essential (primary) hypertension - Plan Plan: Pt is here for chest pain: # Typical Chest Pain Chest pressure worse with exertion, alleviated with rest. She does have hx of asthma. - trop neg - pending cardiac stress # CYNTHIA - resolved - resolved with fluids, 2/2 dehydration # DMII - restart metformin after stress # HTN - restart home meds after stress # GERD - restart home meds after stress # Asthma - monitor Code Status: Full Diet: NPO IVF: LR @ 125 cc DVT PPx: SCDs GI PPx: Protonix, home med PCP: Miguel Dispo: Admit to tele obs for treatment of cynthia and trend trops. LOS < 48H.
--- NOTE | 2019-11-07 14:31 | NM ---
NUCLEAR MEDICINE CARDIAC MYOCARDIAL PERFUSION SPECT EJECTION FRACTION STUDY WALL MOTION CINE: DATE: 11/07/2019 HISTORY: 49-year-old female smoker with hypertension, diabetes mellitus, and dyslipidemia, presents with acute chest pain TECHNIQUE: Number of days: 1 Rest study: Technetium 99m-sestamibi (Cardiolite) dose: 9.2 mCi Pharmacologic stress: Lexiscan dose: 0.4 mg Stress study: Technetium 99m-sestamibi (Cardiolite) dose: 31.8 mCi FINDINGS: CARDIAC (MYOCARDIAL PERFUSION) SPECT There are no reversible myocardial perfusion defects. EJECTION FRACTION STUDY Left ventricular EF = 74 % WALL MOTION CINE Normal IMPRESSION: No evidence of reversible ischemia.
[2019-11-07 15:06] VITALS: BP 123/64; TEMP 99
--- NOTE | 2019-11-08 10:59 | DIS ---
DATE OF ADMISSION: 11/06/2019 DATE OF DISCHARGE: 11/07/2019 RESIDENT: Tevin Williamson DO ADMITTING ATTENDING: Pillo Viera MD DISCHARGE ATTENDING: Valerio Mart MD CONSULTS: None. PROCEDURES PERFORMED: Stress test on 11/07/2019, revealed no evidence of reversible ischemia, normal wall motion, left ventricular EF 74%. PRIMARY DIAGNOSIS: Chest pain. SECONDARY DIAGNOSES: 1. Hypertriglyceridemia. 2. Hypertension. 3. Diabetes type 2. 4. Gastroesophageal reflux disease. DISCHARGE MEDICATIONS: 1. Hydrochlorothiazide 25 mg p.o. daily. 2. Losartan 100 mg p.o. daily. 3. Gabapentin 300 mg p.o. b.i.d. 4. Protonix 40 mg p.o. daily. 5. Paroxetine 40 mg p.o. daily. 6. Calcium citrate vitamin D 2 tabs p.o. b.i.d. 7. Fenofibrate 160 mg p.o. daily. 8. Metformin 500 mg p.o. q.a.m. 9. Vitamin D3 of 5000 units p.o. daily. 10. Flaxseed oil 1200 mg p.o. daily. 11. Prasterone 100 mg p.o. daily. 12. Propranolol 20 mg p.o. b.i.d. 13. Hydroxyzine 25 mg p.o. daily. 14. Vitamin B12 of 2500 mcg p.o. daily. 15. [place] 10/325 one tablet p.o. q.6 p.r.n. DISCONTINUED MEDICATIONS: None. HISTORY OF PRESENT ILLNESS/HOSPITAL COURSE: Eunice Campoverde is a 49-year-old female, who presented with typical chest pain to the emergency department. Pain was worse after exertion. She became short of breath, nauseated, and the pain alleviated with rest. She never had a cardiac workup before in her life. Her trops were negative after trending x3. She had a cardiac stress test, which was within normal limits. She does have an extensive history including hypertension and diabetes, which are predisposing her to cardiac abnormalities. Of note, she did have an CYNTHIA likely secondary to dehydration, which resolved with fluids. Her kidney function was within normal limits on the day of discharge. We continued all patient's home medications on discharge. DISPOSITION: Stable. DISCHARGE INSTRUCTIONS: 1. Location: [facility]. 2. Diet: Heart healthy. 3. Activity: Ad sabi. 4. Followup: Follow up with primary care provider within 7 days. Job ID: [id number]
== END 2019-11-07 16:46 | disposition home or self-care (01) ==
LOC: ERS 18:46 → 2NO 19:45
PROVIDERS: ADMIT Emergency Medicine; ATTEND Emergency Medicine
DX: R07.89 Other chest pain (principal); E78.1 Pure hyperglyceridemia; I11.0 Hypertensive heart disease with heart failure; I50.9 Heart failure, unspecified; E11.9 Type 2 diabetes mellitus without complications; N17.9 Acute kidney failure, unspecified; E86.0 Dehydration; R79.89 Other specified abnormal findings of blood chemistry; R42 Dizziness and giddiness; R51 Headache; K21.9 Gastro-esophageal reflux disease without esophagitis; J45.909 Unspecified asthma, uncomplicated; F32.9 Major depressive disorder, single episode, unspecified; F17.210 Nicotine dependence, cigarettes, uncomplicated; E78.00 Pure hypercholesterolemia, unspecified; Z79.84 Long term (current) use of oral hypoglycemic drugs; Z79.899 Other long term (current) drug therapy; Z88.0 Allergy status to penicillin; Z88.1 Allergy status to other antibiotic agents; Z88.2 Allergy status to sulfonamides
CPT/HCPCS: 78452; 80048; 80053; 82962 ×2; 84484; 85007; 85027; 93005; 93017; 96360; 96361; 99285; A9500; G0378 ×3; 36415; 36416; J2785

== ENCOUNTER 2019-12-19 01:16 | Observation (INO) | payer MEDICARE, MEDICAID ==
[2019-12-19 02:30] LABS: Troponin I Less than 0.010 ng/mL (< 0.028)
[2019-12-19] MEDS ORDERED: Calcium Carbonate 500 MG ChewTAB PO PRN (03:26)
[2019-12-19] MEDS ORDERED: Ondansetron ODT 4 MG TAB PO PRN (03:26)
[2019-12-19] MEDS ORDERED: Senokot S 8.6-50 MG TAB PO PRN (03:26)
[2019-12-19] MEDS ORDERED: Acetaminophen 325 MG TAB PO PRN (03:26)
[2019-12-19] MEDS ORDERED: Sodium Chloride 0.9% 1,000 ML IV SCH (03:30)
[2019-12-19] MEDS ORDERED: Dextrose 50% Abboject 50 ML SYRINGE SLOW IVP PRN (03:32)
[2019-12-19] MEDS ORDERED: Dextrose 5% in Water 1,000 ML IV PRN (03:32)
[2019-12-19] MEDS ORDERED: HumaLOG 300 UNITS/3 ML VIAL SC PRN ×2 (03:32)
[2019-12-19 04:59] LABS: #Eosinphils 0.3 thou/uL (0.0-0.7); #Monocytes 0.5 thou/uL (0.11-0.59); #Neutrophils 3.7 thou/uL (1.40-6.50); %Basophils 0.4 % (0.0-1.0); %Eosinophils 3.6 % (0.0-10.0); %Lymphocytes 39.5 % (21.0-51.0); %Monocytes 6.6 % (0.0-10.0); %Neutrophils 49.8 % (42.0-75.0); Hemoglobin 11.6 g/dL (12.0-16.0); Mean Corpuscular HGB CONC 32.1 g/dL (32.0-36.0); Mean Corpuscular Hemoglobin 28.8 pg (27.0-31.0); Mean Corpuscular Volume 89.6 fL (78.0-98.0); Mean Platelet Volume 7.9 fL (7.4-10.4); Platelet Count 227 thou/uL (130-400); RBC Distribution Width 13.6 % (11.5-14.5); Red Blood Cell (RBC) Count 4.05 mill/uL (4.20-5.40); White Blood Cell (WBC) Count 7.5 thou/uL (4.8-10.8)
[2019-12-19 05:17] LABS: Anion Gap 11 mmol/L (10-20); BUN (Urea Nitrogen) 13 mg/dL (9.8-20.1); Calc. Creatinine Clearance 0 mL/min (70-130); Calcium 8.5 mg/dL (7.8-10.44); Carbon Dioxide 27 mmol/L (22-29); Chloride 105 mmol/L (98-107); Estimated GFR-MDRD Greater than 90; Glucose 97 mg/dL (70-105); Potassium 3.7 mmol/L (3.5-5.1); Sodium 139 mmol/L (136-145)
--- NOTE | 2019-12-19 05:52 | HP ---
PRIMARY CARE PHYSICIAN: [facility] in [place]. CHIEF COMPLAINT: Hypotension and back pain. HISTORY OF PRESENT ILLNESS: The patient is a 49-year-old female with a past medical history significant for hypertension; hyperlipidemia; diabetes type 2, non- insulin dependent; asthma; obstructive sleep apnea, on CPAP at night; chronic back pain ; and acid reflux that presents to the [place] [facility] for the above complaint. The patient reports the sudden onset of right flank pain this morning when she woke up. She describes the pain as sharp and stabbing. It is constant. It is exacerbated by nothing and relieved by nothing. She reports the night prior, she developed a rash from head to toe and was itching from head to toe. She decided not to go to the ER because she did not want to take Benadryl and steroids, so she just took Benadryl and went back to sleep. The patient reports that this has happened another time with the exact same symptoms, developing a rash and itching from head to toe and associated right flank and back pain. The patient was recently discharged from our hospital on 11/13/2019, came in for chest pain, had a full cardiac workup. Cardiac stress test with no evidence of reversible ischemia, normal wall motion with left ventricular EF of 74%. She also had some CYNTHIA that improved with IV fluids and was discharged to follow up with her PCP. The patient also reports that she was seen in the [place] ER one time after her discharge and prior to this recent admission, in which she felt like her blood pressure was low and she felt dizzy while standing. She was given IV fluids and discharged with renal insufficiency. The patient denies any chest pain, heart palpitation, or swelling to her lower extremities. Denies any recent fever or chills. Denies any stridor, shortness of breath, cough, or wheezing. Denies any abdominal pain, nausea, vomiting, or diarrhea. Denies any urinary complaints. She denies any recent changes to any of her medications, any new ingestions, any changes to any of her detergents at home. At the [place] [facility], CT aortic dissection protocol was done and was negative. Chest x-ray was negative for any acute process. Troponins were indeterminate. CMP and CBC were unremarkable. C-reactive protein was 4.23. The patient was given 2 L of normal saline, 1 g of Tylenol, Toradol 15 mg and transferred to the [facility]. PAST MEDICAL HISTORY: 1. Hypertension. 2. Hyperlipidemia. 3. Diabetes type 2, non-insulin dependent. 4. Asthma. 5. Obstructive sleep apnea, on CPAP at night. 6. GERD. 7. Chronic back pain. 8. Depression. PAST SURGICAL HISTORY: 1. Right shoulder replacement 2017. 2. Right total hip replacement 2008. 3. Low back surgery in 2010. 4. Cholecystectomy. 5. Hysterectomy. SOCIAL HISTORY: The patient lives with her family in [place], [place]. She is retired. She ambulates without any assistive devices. She smokes half pack per day. She has no illicit drug use. No alcohol intake. FAMILY HISTORY: Noncontributory to this case. ALLERGIES: NO KNOWN DRUG ALLERGIES. HOME MEDICATIONS: 1. Hydrochlorothiazide 25 mg p.o. daily. 2. Losartan 100 mg p.o. daily. 3. Gabapentin 300 mg p.o. b.i.d. 4. Protonix 40 mg p.o. daily. 5. Paroxetine 40 mg p.o. daily. 6. Calcium citrate/vitamin D 2 tabs p.o. b.i.d. 7. Fenofibrate 160 mg p.o. daily. 8. Metformin 500 mg p.o. q.a.m. 9. Vitamin D3 of 5000 units p.o. daily. 10. Flaxseed oil 1200 mg p.o. daily. 11. Prasterone 100 mg p.o. daily. 12. Propranolol 20 mg p.o. b.i.d. 13. Hydroxyzine 25 mg p.o. daily. 14. Vitamin B12 of 2500 mcg p.o. daily. 15. [place] 10/325 one tablet p.o. q.6 p.r.n. pain. REVIEW OF SYSTEMS: All review of systems is negative unless otherwise stated in HPI. PHYSICAL EXAMINATION: VITAL SIGNS: Temperature 98.1, blood pressure 102/58, pulse 53, respirations 16 , 95% on room air, and 2/10 pain. CONSTITUTIONAL: The patient is alert and oriented to person, place, and time. Mildly discomfort, lying in bed. Nontoxic in appearance. HEAD: Atraumatic and normocephalic. EYES: Extraocular muscles intact. PERRLA. ENT: EACs clear bilaterally. TMs intact. Nares patent. Oropharynx clear. Uvula midline. Moist mucous membranes. No oral lesions. NECK: Full range of motion. No cervical spinous tenderness. No cervical adenopathy. No JVD. RESPIRATORY/CHEST: Respirations even and unlabored. Clear to auscultation. CARDIOVASCULAR: S1 and S2 appreciated. Normal rate and rhythm. No murmurs, rubs, or gallops. ABDOMEN: Soft, nontender. Active bowel sounds. No guarding. No rigidity. No rebound. No abdominal bruit auscultated. BACK: Full range of motion. No central spinous tenderness. No CVA tenderness. EXTREMITIES: Upper extremities, full range of motion. Normal strength. Normal sensation. Palpable radial pulses. Lower extremities, left foot drop, chronic , full range of motion, normal strength, sensation intact. Palpable pedal pulses. No swelling. NEUROLOGIC: A and O x4. Moves all extremities well. No focal motor deficits. Normal gait. Cranial nerves 2 through 12 intact. LABORATORY AND DIAGNOSTICS: CT aorta, negative for acute dissection. Sodium 140, potassium 3.8, chloride 102, carbon dioxide 28, BUN 15, creatinine 0.64, glucose 88, lactic acid 0.7, calcium 9, total bilirubin 0.3, AST 11, ALT 14, alkaline phosphatase 88. Troponins 0.031, then 0.028, then 0.010. WBCs 12.1, hemoglobin 12.4, hematocrit 38.6, platelets 302. UA was unremarkable. IMPRESSION AND PLAN: 1. Transient hypotension. We will admit the patient to the telemetry floor observation status. Expected length of stay less than two midnights. The patient has had multiple episodes in the last several weeks of transient hypotension. She has had a preceding rash from head to toe with pruritus prior to two of her episodes. The patient was recently discharged from our hospital on 11/12 with a full cardiac workup including a normal cardiac stress test. We will trend troponins, allow Day Team to consider further cardiac workup or consult. We will give gentle IV fluid hydration. We will check orthostatics, serum cortisol level. We will hold antihypertensive medications. 2. Elevated troponin. We will trend troponins. The patient just had a recent full cardiac workup. 3. Back pain, chronic. The patient has a history of chronic back pain and has had multiple low back surgeries eight months ago. She reports a full workup of her back including CT with Dr. Berry and he said "her back is fine." High sensitivity neuro exam for lumbar spine was negative. She does have chronic left footdrop. 4. Hypertension. We will hold antihypertensive medications for now. 5. Hyperlipidemia. We will restart the patient's home medications when reconciled. 6. Diabetes type 2, non-insulin dependent. We will start the patient on sliding scale with a.c. and at bedtime Accu-Cheks. 7. SCDs for deep venous thrombosis prophylaxis. Pepcid for gastrointestinal prophylaxis. The patient is a full code. 8. Discussed the case with Dr. Castellano. Job ID: [id number] MTDD
[2019-12-19] MEDS ORDERED: Famotidine 20 MG TAB PO SCH (09:00)
[2019-12-19] MEDS ORDERED: PARoxetine 20 MG TAB PO SCH (09:00)
[2019-12-19] MEDS ORDERED: Fenofibrate Nanocrystallized 145 MG TAB PO SCH (09:00)
[2019-12-19] MEDS ORDERED: Multivit, Therapeutic 1 TAB PO SCH (09:00)
[2019-12-19] MEDS ORDERED: Pantoprazole 40 MG GRANULES PACKET PO SCH (09:00)
[2019-12-19] MEDS ORDERED: Gabapentin 300 MG CAP PO SCH (09:00)
--- NOTE | 2019-12-19 19:42 | DIS ---
DATE OF ADMISSION: 12/19/2019 DATE OF DISCHARGE: 12/19/2019 HOSPITAL COURSE: Ms. Campoverde is a 49-year-old female with a medical history of hypertension, has an elevated, hyperlipidemia, type 2 diabetes noninsulin dependent, asthma, RUSSELL on CPAP, chronic back pain, and acid reflux that presented to [facility] with hypotension as in low. She reported sudden onset of right flank pain and has apparently had a history of pyelonephritis associated with hypotension, so presented to the [facility] ED. There, she was found to be hypotensive with systolic of about 85. However, urinalysis did not reveal bacteriuria or pyuria. She was transferred to the [facility] for hypotension, that promptly resolved with administration of fluids. Initial cardiac workup was negative and electrolytes were within normal limits. Hemoglobin was 11.6 and below her baseline. The patient was informed that further workup was necessary in order to determine the reason for her hypotensive episode; however, chose to leave [facility] due to personal endeavor. At the time of discharge, she was hemodynamically stable and had no complaints. PHYSICAL EXAMINATION: VITAL SIGNS: Blood pressure was 102/51, pulse 60, and respiratory rate 16. She was saturating 97% on room air and temperature was 98.1 Fahrenheit. GENERAL: Lying comfortably in bed, in no distress. Awake and alert. CARDIAC: Regular rate and rhythm. No murmurs, gallops, or rubs. LUNGS: Clear to auscultation bilaterally. No wheezing, rales, or rhonchi. ABDOMEN: Soft, nontender, and nondistended. Normal bowel sounds. EXTREMITIES: Both a radial and pedal pulses were +2 bilaterally. MEDICATIONS: All of the patient's medications were continued; however, the patient was advised to follow up with her primary care physician, which the patient said will be done within this week in order to review her medication including multiple antihypertensives in order to determine the indications for continued treatment with antihypertensive polypharmacy. Job ID: [id number]
== END 2019-12-19 12:18 | disposition left against medical advice (07) ==
LOC: ERS 01:16 → ERHOLD 02:01
PROVIDERS: ADMIT Family Medicine; ATTEND Family Medicine
DX: I95.9 Hypotension, unspecified (principal); R79.89 Other specified abnormal findings of blood chemistry; G89.29 Other chronic pain; M54.9 Dorsalgia, unspecified; I10 Essential (primary) hypertension; E78.5 Hyperlipidemia, unspecified; E11.9 Type 2 diabetes mellitus without complications; J45.909 Unspecified asthma, uncomplicated; G47.33 Obstructive sleep apnea (adult) (pediatric); K21.9 Gastro-esophageal reflux disease without esophagitis; F32.9 Major depressive disorder, single episode, unspecified; F17.210 Nicotine dependence, cigarettes, uncomplicated; Z53.29 Procedure and treatment not carried out because of patient's decision for other reasons; Z79.84 Long term (current) use of oral hypoglycemic drugs; Z79.899 Other long term (current) drug therapy; Z88.0 Allergy status to penicillin; Z88.1 Allergy status to other antibiotic agents; Z88.2 Allergy status to sulfonamides
CPT/HCPCS: 80048; 82533; 84484; 85025; G0378; 36415; 96360; 96361

== ENCOUNTER 2021-01-16 17:39 | Emergency (ER) | payer MEDICARE, MEDICAID ==
[2021-01-16 19:41] LABS: #Eosinphils 0.1 thou/uL (0.0-0.7); #Lymphocytes 1.2 thou/uL (1.20-3.40); #Monocytes 0.9 thou/uL (0.11-0.59); #Neutrophils 6.2 thou/uL (1.40-6.50); %Basophils 0.4 % (0.0-1.0); %Eosinophils 1.6 % (0.0-10.0); %Lymphocytes 13.8 % (21.0-51.0); %Monocytes 10.4 % (0.0-10.0); %Neutrophils 73.8 % (42.0-75.0); Hemoglobin 14.9 g/dL (12.0-16.0); Mean Corpuscular HGB CONC 33.5 g/dL (32.0-36.0); Mean Corpuscular Volume 86.6 fL (78.0-98.0); Mean Platelet Volume 8.4 fL (7.4-10.4); Platelet Count 232 thou/uL (130-400); Red Blood Cell (RBC) Count 5.15 mill/uL (4.20-5.40); White Blood Cell (WBC) Count 8.4 thou/uL (4.8-10.8)
[2021-01-16 20:06] LABS: ALT (SGPT) 15 U/L (8-55); AST (SGOT) 14 U/L (5-34); Albumin 4.5 g/dL (3.5-5.0); Alkaline Phosphatase 121 U/L (40-110); Anion Gap 14 mmol/L (10-20); BUN (Urea Nitrogen) 8 mg/dL (9.8-20.1); Bilirubin, Total 0.4 mg/dL (0.2-1.2); Calc. Creatinine Clearance 0 mL/min (70-130); Calcium 10.1 mg/dL (7.8-10.44); Carbon Dioxide 26 mmol/L (22-29); Chloride 102 mmol/L (98-107); Globulin 3.6 g/dL (2.4-3.5); Glucose 90 mg/dL (70-105); Potassium 3.8 mmol/L (3.5-5.1); Protein, Total 8.1 g/dL (6.0-8.3); Sodium 138 mmol/L (136-145)
== END 2021-01-16 20:28 | disposition home or self-care (01) ==
LOC: ERS 17:39
DX: U07.1 COVID-19 (principal); J12.82 Pneumonia due to coronavirus disease 2019; E78.5 Hyperlipidemia, unspecified; E11.9 Type 2 diabetes mellitus without complications; I10 Essential (primary) hypertension; K21.9 Gastro-esophageal reflux disease without esophagitis; F17.210 Nicotine dependence, cigarettes, uncomplicated; Z79.899 Other long term (current) drug therapy
CPT/HCPCS: 71045; 80053; 85025; 93005

== ENCOUNTER 2023-08-10 11:12 | Outpatient (CLI) | payer MEDICARE | END 2023-08-10 11:13 | disposition home or self-care (01) | LOC: BICMAMMO 11:12 | PROVIDERS: ATTEND Registered Nurse | DX: Z12.31 Encounter for screening mammogram for malignant neoplasm of breast (principal); Z91.89 Other specified personal risk factors, not elsewhere classified | CPT/HCPCS: 77063; 77067 ==